=== PATIENT | female | born 1940 | race Caucasian/White ===

== ENCOUNTER → 2016-11-08 | Outpatient (CLI) | payer OTHER ==
[~2016-11-08] MED LIST: ASPEC81; CALCTAB5; EVS60; LANS30CA12 PO; MULT-506 PO; NIAC50TA9 PO; OXYC1TAB3 PO; SIMV80TA2
[2016-11-08 17:49] LABS: ALT/SGPT 32 U/L (12-78); BLOOD UREA NITROGEN 18 mg/dl (7-18); BUN/CREATININE RATIO 18.5 (10-20); CALCIUM 9.1 mg/dl (8.5-10.1); CARBON DIOXIDE 28 mmol/L (21-32); CHLORIDE 104 mmol/L (98-107); CHOLESTEROL 190 mg/dl (0-200); CREATININE 0.95 mg/dl (0.60-1.20); GLUCOSE 91 mg/dl (70-99); POTASSIUM 3.7 mmol/L (3.5-5.1); SODIUM 142 mmol/L (136-145); TRIGLYCERIDES 169 mg/dl (0-150); VERY LOW DENSITY LIPOPROT CALC 34 mg/dl
[2016-11-08 17:52] LABS: ALB/GLOB RATIO 1.1 (0.9-2); ALKALINE PHOSPHATASE 101 U/L (45-117); AST/SGOT 19 U/L (15-37); CHOLESTEROL/HDL RATIO 2.4; HDL CHOLESTEROL 80 mg/dl; LDL CHOLESTEROL CALCULATED 76 mg/dl
== END | disposition home or self-care (01) ==
LOC: C.LABPBG 12:03
PROVIDERS: ATTEND Internal Medicine
DX: E78.5 Hyperlipidemia, unspecified (principal)

== ENCOUNTER → 2017-01-05 | Outpatient (CLI) | payer OTHER ==
--- NOTE | 2017-01-05 16:06 | MAMMOGRAPHY REPORT ---
BILATERAL DIGITAL SCREENING MAMMOGRAM WITH CAD: 01/05/2017 CLINICAL HISTORY: Routine screening. Patient has no complaints. TECHNIQUE: Current study was also evaluated with a Computer Aided Detection (CAD) system. Bilatera l CC and MLO views were obtained. COMPARISON: Comparison is made to exams dated: 12/25/2015 mammogram, 12/23/2014 mammogram, 12/20/2013 mammogram, 12/19/2012 mammogram, and 12/09/2011 mammogram - [facility]. BREAST COMPOSITION: There are scattered areas of fibroglandular density in both breasts. FINDINGS: No suspicious masses, calcifications, or areas of architectural distortion are noted in e ither breast. There has been no significant interval change compared to prior exams. IMPRESSION: ACR BI-RADS CATEGORY 1: NEGATIVE There is no mammographic evidence of malignancy. A 1 year screening mammogram is recommended. The p atient will receive written notification of the results. Approximately 10% of breast cancers are not detected with mammography. A negative mammographic repor t should not delay biopsy if a clinically suggestive mass is present. Rebeca Del Rio M.D. ah/:01/05/2017 15:24:40 Medical Education Coordinator: Nicolle Scott RT(R)(M), [facility] letter sent: Normal 1/2 BI-RADS Code: ACR BI-RADS Category 1: Negative
== END | disposition home or self-care (01) ==
LOC: C.MAMM 13:43
PROVIDERS: ATTEND Obstetrics & Gynecology
DX: Z12.31 Encounter for screening mammogram for malignant neoplasm of breast (principal)

== ENCOUNTER → 2017-05-20 | Outpatient (CLI) | payer OTHER ==
[2017-05-20 12:43] LABS: ALT/SGPT 28 U/L (12-78); AST/SGOT 18 U/L (15-37); BLOOD UREA NITROGEN 17 mg/dl (7-18); BUN/CREATININE RATIO 16.8 (10-20); CALCIUM 8.6 mg/dl (8.5-10.1); CARBON DIOXIDE 31 mmol/L (21-32); CHLORIDE 104 mmol/L (98-107); GLUCOSE 92 mg/dl (70-99); POTASSIUM 3.6 mmol/L (3.5-5.1); SODIUM 139 mmol/L (136-145)
[2017-05-20 12:55] LABS: ALB/GLOB RATIO 1.1 (0.9-2); ALKALINE PHOSPHATASE 99 U/L (45-117); CHOLESTEROL 201 mg/dl (0-200); CHOLESTEROL/HDL RATIO 3.8; HDL CHOLESTEROL 53 mg/dl; LDL CHOLESTEROL CALCULATED 102 mg/dl; TRIGLYCERIDES 230 mg/dl (0-150); VERY LOW DENSITY LIPOPROT CALC 46 mg/dl
== END | disposition home or self-care (01) ==
LOC: C.LABPBG 08:40
PROVIDERS: ATTEND Internal Medicine
DX: M81.0 Age-related osteoporosis without current pathological fracture (principal)

== ENCOUNTER → 2017-11-18 | Outpatient (CLI) | payer OTHER ==
[2017-11-18 13:17] LABS: ALBUMIN 4.1 gm/dl (3.4-5.0); ALT/SGPT 29 U/L (12-78); BLOOD UREA NITROGEN 18 mg/dl (7-18); CALCIUM 9.3 mg/dl (8.5-10.1); CARBON DIOXIDE 32 mmol/L (21-32); CHOLESTEROL 181 mg/dl (0-200); CREATININE 0.91 mg/dl (0.60-1.20); GLUCOSE 92 mg/dl (70-99); POTASSIUM 3.6 mmol/L (3.5-5.1); SODIUM 138 mmol/L (136-145)
[2017-11-18 13:21] LABS: ALKALINE PHOSPHATASE 92 U/L (45-117); AST/SGOT 15 U/L (15-37); LDL CHOLESTEROL CALCULATED 81 mg/dl; TOTAL PROTEIN 7.4 gm/dl (6.4-8.2)
== END | disposition home or self-care (01) ==
LOC: C.LABPBG 10:05
PROVIDERS: ATTEND Internal Medicine
DX: K21.9 Gastro-esophageal reflux disease without esophagitis (principal)

== ENCOUNTER → 2018-01-31 | Day surgery (SDC) | payer OTHER ==
[2018-01-20 12:16] VITALS: Ht 154.9 cm; Wt 65.5 kg
[~2018-01-31] VITALS: Ht 154.9 cm; Wt 65.5 kg
[~2018-01-31] MED LIST changes: +500ML BSS 0.3ML EPI 1:1000PF IRRIG ONE; +ACETAMINOPHEN 325 MG TAB PO PRN; +AMVISC PLUS 0.8ML SYRINGE INT OCU ONE; +ASPCH81X PO; -ASPEC81; +ATOR-26 PO; +ATROPINE SULFATE 0.1 MG/ML 5ML SYR IV PRN; +BSS FLUSH ONE; +CALC500C70 PO; -CALCTAB5; +CHOL20009 PO; +CYAN100020 PO; -EVS60; +EpHEDrine SULFATE INJ 50 MG/ML AMP IV PRN; +EpINEphrine INJ 1MG/ML AMP 1 MG/ML AMP ONE; +HYG/25 PO; +LACTATED RINGER'S 1000ML 500 ML IV SCH; -LANS30CA12 PO; +LIDOCAINE 3.5% OPH GEL PER APPLICATION CHARGE ONE; +LIDOCAINE HCL 1% MPF 2 ML VIAL ONE; +LISI20TA3 PO; +MELO-83 PO; -MULT-506 PO; -NIAC50TA9 PO; +OCUCOAT 1 ML SOLN IO ONE; -OXYC1TAB3 PO; +POVIDONE-IODINE OP SOLN 30 ML BTL ONE; +PROPARACAINE 0.5% OP SOLN PER DROP CHARGE OPL SCH; +RANITAB33 PO; -SIMV80TA2; +TOBRAMYCIN/DEXAMETHASONE OPH OINT PER APPLN CHARGE ONE; +TRAZ50TA35 PO
[2018-01-31] MEDS: PHENYLEPHRINE HCL 2.5% OP SOLN PER DROP CHARGE OPL SCH ×2 (08:44→08:49)
[2018-01-31] MEDS: TROPICAMIDE 1% OP SOLN PER DROP CHARGE OPL SCH ×2 (08:45→08:50)
[2018-01-31] MEDS: CYCLOPENTOLATE HCL 1% OP SOLN PER DROP CHARGE OPL SCH ×2 (08:46→08:51)
[2018-01-31] MEDS: KETOROLAC 0.5% OP SOLN PER DROP CHARGE OPL SCH ×2 (08:47→08:52)
[2018-01-31] MEDS: GATIFLOXACIN OP SOLN PER DROP CHARGE OPL SCH ×2 (08:48→08:58)
--- NOTE | 2018-01-31 09:13 | History & Physical Bridge - SC ---
H&P Re-Evaluation Bridge Note: I have examined the patient, reviewed the History & Physical and in the interval since the performance of the History & Physical I have noted the following changes of clinical significance: No changes noted
--- NOTE | 2018-01-31 10:05 | [facility] Operative Report ---
Operative Report Date of Service January 31, 2018. Operative Report 1. PREOPERATIVE DIAGNOSIS: Cataract of the left eye. 2. POSTOPERATIVE DIAGNOSIS: Same. 3. PROCEDURE: Phacoemulsification with intraocular lens implantation of the left eye. SURGEON: Dr. Hector Stuart. ANESTHESIA: Topical Lidocaine gel, 1% Non- Preserved intracameral Lidocaine, and monitored intravenous sedation. INDICATIONS FOR THE PROCEDURE: The patient is a 77 - year-old female with a history of cataract of the left eye causing significant visual impairment. The details of the proposed procedure were explained to the patient who asked appropriate questions and following discussion of all risks, benefits and alternatives agreed to have the procedure done. 4. OPERATION AND FINDINGS: DESCRIPTION OF PROCEDURE: After informed consent was obtained, the patient was brought to the Operating Room at the [facility]. The patient was placed in a supine position and then the left eye was prepped and draped in the usual sterile fashion for intraocular surgery. A drop of topical Lidocaine gel was placed in the operative eye. A wire lid speculum was then placed in the fornices. A corneal paracentesis was then created temporally. The Non-Preserved Lidocaine was then instilled into the anterior chamber. The anterior chamber was then pressurized with viscoelastic. A 2.0 mm clear corneal incision was then created temporally. A cystotome was inserted into the anterior chamber and used to create a tear in the anterior lens capsule. This capsular tear was then used to create a small flap and the flap was dragged in a counterclockwise direction in order to create a continuous curvilinear capsulorrhexis. Hydrodissection was accomplished with balanced salt solution. Phacoemulsification of the lens nucleus was then performed in a standard [id number] technique. The phaco time was 26 seconds with an average power of 11 %. The remaining cortical material was removed using irrigation aspiration. The capsular bag was then filled with viscoelastic. A [employer]ch [employer] Lomb MI60L +18.5 diopters lens was then loaded into the injector and injected into the capsular bag. The remaining viscoelastic was removed with the irrigation aspiration handpiece. The wound was hydrated and then checked and found to be watertight. The intraocular pressure was checked and found to be adequate. The wire lid speculum was removed and the patient's face was cleaned and dried. TobraDex ointment was placed in the inferior fornix. The patient was discharged to the Recovery Room having tolerated the procedure well. There were no complications. The patient will be seen tomorrow in the office for follow-up. I attest to the content of the Intraoperative Record and any orders documented therein. Any exceptions are noted below.
--- NOTE | 2018-01-31 10:06 | Discharge Instructions-SurgCtr ---
Discharge Instructions Date of Service January 31, 2018. Visit Reason for Visit: Left Cataract Discharge Discharge Diagnosis / Problem: cataract Discharge Goals Goal(s): Improve function Activity Recommendations Activity Limitations: per Instructions/Follow-up section Anesthesia . Post Anesthesia Instructions: If you have had General Anesthesia or IV Sedation: * Do not drive today. * Resume driving when surgeon permits. * Do not make important decisions or sign legal documents today. * Call surgeon for: 1. Temperature elevations greater than 101 degrees F. 2. Uncontrollable pain. 3. Excessive bleeding. 4. Persistent nausea and vomiting. 5. Medication intolerance (nausea, vomiting or rash). * For nausea and vomiting use only clear liquids such as: tea, soda, bouillon until nausea subsides, then gradually increase diet as tolerated. * If you have any concerns or questions, call your surgeon's office. If physician is unavailable and it is an emergency, call 911 or go to the nearest emergency room. . Diet Recommendations Home Diet: resume previous diet Procedures Procedures Performed: Left Cataract Phacoemulsification With Intraocular Lens Implant Pending Studies Studies pending at discharge: no Medical Emergencies . Who to Call and When: Medical Emergencies: If at any time you feel your situation is an emergency, please call 911 immediately. . Non-Emergent Contact Non-Emergency issues call your: It Trainer . . "Provider Documentation" section prepared by Hector Stuart. .
[2018-01-31 10:14] VITALS: BP 117/74; PULSE 67; TEMP 36; O2SAT 98
--- NOTE | 2018-01-31 10:35 | Anesthesia Progress Nt - [facility] ---
Anesthesia Post Op Note Date & Time January 31, 2018 at 10:35 Vital Signs Pain Intensity: 0 Vital Signs Past 12 Hours Date Time Temp Pulse Resp B/P (MAP) Pulse Ox O2 Delivery O2 Flow Rate FiO2 01/31/18 10:14 36 67 16 117/74 (88) 98 Room Air 01/31/18 10:01 74 01/31/18 10:01 75 99 01/31/18 10:01 74 18 142/63 99 Room Air 01/31/18 10:01 75 99 01/31/18 10:00 142/63 01/31/18 10:00 142/63 01/31/18 09:56 73 97 01/31/18 09:56 72 01/31/18 09:56 73 97 01/31/18 09:56 72 01/31/18 09:55 138/78 01/31/18 09:55 138/78 01/31/18 08:35 36.7 68 18 109/68 (82) 96 Notes Mental Status: alert / awake / arousable, participated in evaluation Pt Amnestic to Procedure: Yes Nausea / Vomiting: adequately controlled Pain: adequately controlled Airway Patency, RR, SpO2: stable & adequate BP & HR: stable & adequate Hydration State: stable & adequate Anesthetic Complications: no major complications apparent
== END | disposition home or self-care (01) ==
LOC: X.SURG 08:05
PROVIDERS: ATTEND Ophthalmology
DX: H26.9 Unspecified cataract (principal); I10 Essential (primary) hypertension; Z98.41 Cataract extraction status, right eye; Z79.82 Long term (current) use of aspirin; Z79.899 Other long term (current) drug therapy; Z88.1 Allergy status to other antibiotic agents

== ENCOUNTER → 2018-04-21 | Outpatient (CLI) | payer OTHER ==
[~2018-04-21] MED LIST changes: -500ML BSS 0.3ML EPI 1:1000PF IRRIG ONE; -ACETAMINOPHEN 325 MG TAB PO PRN; -AMVISC PLUS 0.8ML SYRINGE INT OCU ONE; -ATROPINE SULFATE 0.1 MG/ML 5ML SYR IV PRN; -BSS FLUSH ONE; -EpHEDrine SULFATE INJ 50 MG/ML AMP IV PRN; -EpINEphrine INJ 1MG/ML AMP 1 MG/ML AMP ONE; -LACTATED RINGER'S 1000ML 500 ML IV SCH; -LIDOCAINE 3.5% OPH GEL PER APPLICATION CHARGE ONE; -LIDOCAINE HCL 1% MPF 2 ML VIAL ONE; -OCUCOAT 1 ML SOLN IO ONE; -POVIDONE-IODINE OP SOLN 30 ML BTL ONE; -PROPARACAINE 0.5% OP SOLN PER DROP CHARGE OPL SCH; -TOBRAMYCIN/DEXAMETHASONE OPH OINT PER APPLN CHARGE ONE
--- NOTE | 2018-04-24 15:42 | MAMMOGRAPHY REPORT ---
BILATERAL DIGITAL SCREENING MAMMOGRAM TOMOSYNTHESIS WITH CAD: 04/21/2018 CLINICAL HISTORY: Routine screening. TECHNIQUE: The study was acquired using full field digital technology and interpreted from soft copy. Breast tomosynthesis in addition to standard 2D mammography was performed. Current study was also ev aluated with a Computer Aided Detection (CAD) system. COMPARISON: Comparison is made to exams dated: 01/05/2017 mammogram, 12/25/2015 mammogram, 12/23/2014 m ammogram, 12/20/2013 mammogram, 12/09/2011 mammogram, and 12/19/2012 mammogram - [facility]. BREAST COMPOSITION: There are scattered areas of fibroglandular density in both breasts. FINDINGS: No suspicious masses, calcifications, or areas of architectural distortion are noted in either breast . There has been no significant interval change compared to prior exams. IMPRESSION: ACR BI-RADS CATEGORY 1: NEGATIVE There is no mammographic evidence of malignancy. A 1 year screening mammogram is recommended.( 019) The patient will receive written notification of the results. Some breast cancers are not detected with mammography. A negative mammographic report should not yumiko y biopsy if a clinically suggestive mass is present. Rebeca Del Rio M.D. ah/:04/21/2018 15:52:44 Prescriptionist: RT Luisa(Elver)(M), [facility] letter sent: Normal 1/2 BI-RADS Code: ACR BI-RADS Category 1: Negative
== END | disposition home or self-care (01) ==
LOC: C.MAMM 14:50
PROVIDERS: ATTEND Obstetrics & Gynecology
DX: Z12.31 Encounter for screening mammogram for malignant neoplasm of breast (principal)

== ENCOUNTER → 2018-05-18 | Outpatient (CLI) | payer OTHER ==
[2018-05-18 13:01] LABS: BASO % 0.6 %; BASO ABS # 0.03 K/uL (0-0.2); EOS % 5.9 %; EOS ABS # 0.29 K/uL (0-0.5); HEMATOCRIT 42.2 % (37-47); HEMOGLOBIN 14.1 g/dL (12.0-16.0); IG# 0.01 K/uL (0.00-0.02); LYMPH % 22.6 %; LYMPH ABS # 1.12 K/uL (1.2-3.4); MEAN CELL VOLUME 90.4 fL (80-100); MEAN CORPUSCULAR HEMOGLOBIN 30.2 pg (25-34); MEAN CORPUSCULAR HGB CONC 33.4 g/dl (32-36); MEAN PLATELET VOLUME 10.7 fL (7.4-10.4); MONO % 10.5 %; MONO ABS # 0.52 K/uL (0.11-0.59); NEUT % 60.2 %; NEUT ABS # 2.98 K/uL (1.4-6.5); PLATELET COUNT 227 K/uL (130-400); RED CELL DISTRIBUTION WIDTH CV 14.1 % (11.5-14.5); RED CELL DISTRIBUTION WIDTH SD 46.6 fL (36.4-46.3); WHITE BLOOD COUNT 4.95 K/uL (4.8-10.8)
[2018-05-18 16:07] LABS: ALBUMIN 3.9 gm/dl (3.4-5.0); ALKALINE PHOSPHATASE 108 U/L (45-117); ALT/SGPT 30 U/L (12-78); AST/SGOT 22 U/L (15-37); BLOOD UREA NITROGEN 19 mg/dl (7-18); CALCIUM 9.1 mg/dl (8.5-10.1); CARBON DIOXIDE 27 mmol/L (21-32); CHOLESTEROL 215 mg/dl (0-200); GLUCOSE 94 mg/dl (70-99); LDL CHOLESTEROL CALCULATED 111 mg/dl; POTASSIUM 3.7 mmol/L (3.5-5.1); SODIUM 139 mmol/L (136-145); TOTAL PROTEIN 7.5 gm/dl (6.4-8.2)
== END | disposition home or self-care (01) ==
LOC: C.LABPBG 09:13
PROVIDERS: ATTEND Internal Medicine
DX: M81.0 Age-related osteoporosis without current pathological fracture (principal); I10 Essential (primary) hypertension; E78.5 Hyperlipidemia, unspecified; K21.9 Gastro-esophageal reflux disease without esophagitis

== ENCOUNTER 2023-05-04 14:32 | Observation (INO) ==
--- NOTE | 2023-05-04 15:28 | Emergency Department Note ---
History of Present Illness General Chief complaint: Wrist Pain Stated complaint: R WRIST BROKEN,DOC REF,BUMP ON HEAD Time Seen by Provider: 05/04/23 15:11 History of Present Illness Maximum Pain Intensity: 5 This is an 82-year-old female who presents to the emergency department via private vehicle accompanied by daughter with complaints of "right wrist broken, referred by clinic, bump on head". The patient notes that earlier today she was ambulating and tripped and fell on the sidewalk. She notes that she did not lose consciousness. No preceding dizziness, chest pain or shortness of breath. No syncope. She did brace the fall with her right wrist. She notes pain to the right wrist. She initially presented to [facility]. She notes that an x-ray was performed and the wound was cleansed on the right wrist followed by skin glue. She was discharged home pending results of the x-ray. While driving home she received a phone call regarding the fracture and then was directed to [facility]. Upon arriving there they then directed her here for further evaluation and management. The patient rates her current wrist pain is a 5/10. She is right-hand dominant. No headache. Per review of the EMR last Td was 2016. Home Medications Medication Instructions Recorded Confirmed Type cholecalciferol (vitamin D3) 50 2,000 units PO DAILY 06/24/19 05/04/23 History mcg (2,000 unit) capsule cyanocobalamin (vitamin B-12) 1,000 mcg PO DAILY 06/24/19 05/04/23 History 1,000 mcg tablet alendronate 70 mg tablet (Fosamax) 70 mg PO .weekly #12 tabs 01/25/23 05/04/23 Rx chlorthalidone 25 mg tablet 12.5 mg PO DAILY #45 tabs 05/02/23 05/04/23 Rx atorvastatin 80 mg tablet 80 mg PO DAILY 05/04/23 05/04/23 History lisinopril 20 mg tablet 20 mg PO DAILY 05/04/23 05/04/23 History meloxicam 15 mg tablet 15 mg PO DAILY 05/04/23 05/04/23 History Allergies Allergy/AdvReac Type Severity Reaction Status Date / Time naproxen Allergy Unknown FINGER/MOUTH/FACIAL Verified 01/03/23 09:25 SWELLING Bactrim AdvReac Unknown NAUSEA/VOMI Verified 01/31/18 08:33 TTING sulfamethoxazole AdvReac Unknown NAUSEA/VOMI Verified 01/03/23 09:25 TTING trimethoprim AdvReac Unknown NAUSEA/VOMI Verified 01/03/23 09:25 TTING Past Med/Surg History Medical History Gastroesophageal reflux disease without esophagitis HTN (hypertension) Hyperlipidemia Insomnia disorder Osteoporosis Postmenopausal Postmenopausal Spondylosis of cervical region without myelopathy or radiculopathy Surgical History H/O cataract removal with insertion of prosthetic lens S/P section Family History Mother Myocardial infarction Father Colorectal cancer Other Coronary heart disease Dyslipidemia Hypertension Denies family history of Ovarian cancer Prostate cancer Breast cancer Social History Smoking Status: Never smoker Second Hand Exposure: Yes (father smoked); Do You Dip or Chew Tobacco: No; Hx Alcohol Use: No Hx Substance Use: No Preferred Language: Icelandic Communication Ability: Effective Visual Impairment: No Limitations Hearing Ability: Normal Rvda Master Certified Rv Technician Required: No Beliefs That Will Affect Care: None marital status: Current Living Situation: Alone current occupational status: retired Feels Safe at Home: Yes Safety Concerns: Feels Safe At This Time Childhood Exposure to Second-Hand Smoke: Yes Diet: regular Diet Comment: regular caffeine: No during the past year weight has: remained stable Dental Care, Regularly: No Physical Activity Frequency: Daily Physical Activity Frequency Comment: walking Seatbelt Use: always Sunscreen Use: Yes Assistive Devices: Denture - Upper and Other Assistive Devices Comment: reading glasses Review of Systems A total of 10 systems reviewed and were otherwise negative Physical Exam Vital Signs Vital Signs - 24 hr 05/04/23 14:35 05/04/23 17:54 Temperature 36.0 C L Temperature Source Temporal Artery Scan Pulse Rate 112 H Pulse Rate [Finger] 111 H Respiratory Rate 18 18 Respiratory Effort / Characteristics Non-Labored Spontaneous Respiratory Depth Normal Blood Pressure 136/70 Blood Pressure [Left Arm] 131/91 Blood Pressure Mean 92 Blood Pressure Mean [Left Arm] 104 Pulse Oximetry 98 97 Oxygen Delivery Method Room Air Room Air Sepsis Recent Fever Within 48 Hours No Sepsis New/Unexplained Change in Mental Status N/A Sepsis Action Taken by Nursing No Action Required VITAL SIGNS - Vital signs and nursing notes were reviewed. Tachycardic, otherwise stable. GENERAL -82-year-old female appearing her stated age who is in no acute distress. Communicates well with provider and answers questions appropriately. SKIN -there is an approximately 2 cm in diameter slightly raised purplish hue abrasion/contusion overlying the right medial wrist at the level of the ulnar styloid. Minor active bleeding noted from this area. HEAD -right-sided forehead contusion noted. No laceration to the forehead. EYES - PERRL with EOMI bilaterally. No hyphema EARS - No deformities of external structures noted on gross examination bilaterally. No hemotympanum. NOSE - Midline and without cyanosis. No epistaxis or purulent drainage noted. MOUTH/OROPHARYNX - Without perioral cyanosis. NECK -no C-spine tenderness. No nuchal rigidity. LUNGS -clear to auscultation. CARDIAC - RRR EXTREMITIES - No clubbing or peripheral cyanosis. Obvious deformity to the right wrist noted. There is an abrasion/wound near the apex of the medial aspect of the deformity. There is a large amount of ecchymosis present to the dorsum of the right hand extending into the digits. +5/5 strength noted in UE/LE bilaterally. NEUROLOGIC - Cranial nerves II through XII grossly intact. PSYCH - A&O, and cooperates fully with examiner. Pt is very pleasant and interacts well with examiner. Course Administered Medications Sodium Chloride (Nss 1000ml) 1,000 mls @ 80 mls/hr IV .[id number] NAVA Stop: 06/03/23 23:39 Last Admin: 05/05/23 00:20 Dose: 80 mls/hr Documented By: BELINDA Acetaminophen (Ofirmev) 1,000 mg in 100 mls @ 400 mls/hr IV Q8H PRN PRN Reason: Pain Stop: 05/07/23 23:39 Last Infusion: 05/05/23 04:10 Dose: 0 mls/hr Documented By: Admin: 05/05/23 03:55 Dose: 400 mls/hr Documented By: BELINDA Cefazolin Sodium (Ancef 1000mg) 1,000 mg in 7.5 mls @ 2.5 mls/min IV Q8H NAVA Stop: 06/16/23 00:59 Last Admin: 05/05/23 01:04 Dose: 2.5 mls/min Documented By: PLF Discontinued Medications Cefazolin Sodium (Ancef 2000mg) 2,000 mg in 15 mls @ 3.75 mls/min IV NOW STA Stop: 05/04/23 16:51 Last Admin: 05/04/23 17:19 Dose: 3.75 mls/min Documented By: KRISTEN Acetaminophen (Ofirmev) 1,000 mg in 100 mls @ 400 mls/hr IV NOW STA Stop: 05/04/23 18:36 Last Infusion: 05/04/23 19:34 Dose: 0 mls/hr Documented By: Admin: 05/04/23 18:36 Dose: 400 mls/hr Documented By: KRISTEN Medical Decision Making Laboratory Data 05/04/23 16:58 05/04/23 16:58 Lab Results 05/04/23 05/04/23 Range/Units 16:58 16:58 WBC 11.89 H (4.8-10.8) K/ul RBC 4.71 (4.20-5.40) M/uL Hgb 14.3 (12.0-16.0) g/dl Hct 41.3 (37.0-47.0) % MCV 87.7 (80.0-100.0) fL MCH 30.4 (25.0-34.0) pg MCHC 34.6 (32.0-36.0) g/dL RDW Std Deviation 43.1 (36.4-46.3) fL RDW Coeff of Heather 13.4 (11.5-14.5) % Plt Count 263 (130-400) K/uL MPV 10.8 (9.4-12.4) fL Immature Gran % (Auto) 0.3 % Neut % (Auto) 82.0 % Lymph % (Auto) 10.3 % Camas % (Auto) 6.7 % Eos % (Auto) 0.3 % Baso % (Auto) 0.4 % Neut # (Auto) 9.75 H (1.40-6.50) K/uL Lymph # (Auto) 1.22 (1.2-3.4) K/uL Camas # (Auto) 0.80 H (0.11-0.59) K/uL Eos # (Auto) 0.03 (0-0.50) K/uL Baso # (Auto) 0.05 (0-0.2) K/uL Immature Gran # (Auto) 0.04 (0.01-0.20) K/uL Sodium 137 (136-145) mmol/L Potassium 3.6 (3.5-5.1) mmol/L Chloride 102 (98-107) mmol/L Carbon Dioxide 25 (21-32) mmol/L Anion Gap 10 (3-11) BUN 24 H (6-23) mg/dl Creatinine 0.82 (0.6-1.2) mg/dl Est Cr Clr Drug Dosing 48.8 ml/min Est GFR ( Amer) 77.2 ml/min Est GFR (Non-Af Amer) 66.6 ml/min BUN/Creatinine Ratio 29.3 H (10-20) Glucose 102 H (70-99(Fasting)) mg/dl Calcium 10.2 (8.6-10.3) mg/dl Total Bilirubin 1.1 H (0.2-1.0) mg/dl AST 22 (13-39) U/L ALT 20 (7-52) U/L Alkaline Phosphatase 77 (34-104) U/L Total Protein 7.4 (6.0-8.3) gm/dl Albumin 4.5 (3.4-5.0) gm/dl Globulin 2.9 (2.5-4.0) gm/dl Albumin/Globulin Ratio 1.6 (0.9-2) Imaging Data Radiologist's Impression: Head CT 05/04/23 15:30 CT SCAN OF THE BRAIN WITHOUT IV CONTRAST CLINICAL HISTORY: Fall. Scalp contusion. COMPARISON STUDY: No priors. TECHNIQUE: Unenhanced axial CT scan of the brain is performed from the vertex to the skull base. A dose lowering technique was utilized adhering to the principles of ALARA. CT DOSE: 547.75 mGy.cm FINDINGS: Brain parenchyma: There is age-related involutional change noting [id number] subcortical and periventricular microangiopathic disease. There is no hemorrhage, mass effect, or evidence of acute territorial ischemia by CT criteria. A small chronic lacunar infarct is noted in the left basal ganglia. Gomes-white matter differentiation is preserved. No extra-axial fluid collection is seen. Ventricles, sulci, cisterns: Prominent secondary to involutional change. Intracranial vasculature: There is atherosclerotic calcification of the c avernous carotid artery. Calvarium: The skeletal structures are osteopenic. No depressed calvarial fracture is seen. Soft tissues: There is a right frontal scalp hematoma. Sinuses and mastoids: The visualized paranasal sinuses are clear. The mastoid air cells are well pneumatized. Orbits: The bony orbits are grossly intact. IMPRESSION: 1. There is no hemorrhage, mass effect, or evidence of acute territorial ischemia by CT criteria. 2. Right frontal scalp hematoma. ACT 112: Negative or not required by law. Electronically signed by: Gerard Arechiga M.D. 05/04/2023 4:18 PM Hand X-Ray 05/04/23 15:55 XR hand RT min 3V routine CLINICAL HISTORY: R wrist and hand pain s/p fall TECHNIQUE: 3 views of the right hand were obtained. Comparison: None available at the time of this dictation. FINDINGS: Displaced and overriding intra-articular fracture of the distal radius and age indeterminate ulnar styloid fracture again noted. Degenerative changes are seen in the joints. Soft tissue swelling is seen about the wrist. IMPRESSION: Degenerative changes without fractures of the hand. Please see wrist radiograph for findings of the wrist fracture. ACT 112: Negative or not required by law. Electronically signed by: Burton Abebe M.D. 05/04/2023 5:11 PM Wrist X-Ray 05/04/23 15:55 RIGHT WRIST 4 VIEWS CLINICAL HISTORY: Fall with right wrist injury. FINDINGS: 4 views of the right wrist are obtained. No prior studies are available for comparison at the time of dictation. The skeletal structures are osteopenic. There is an impacted and comminuted fracture of the distal radial metaphysis with intra-articular extension. There is volar displacement of the anterior radial fragments and the carpal bones which override the radial shaft. Significant overlying soft tissue edema is noted. There is also an age indeterminant avulsion fracture of the ulnar styloid. The radiocarpal articulation appears maintained. 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 IMPRESSION: 1. Displaced and overriding intra-articular fracture of the distal radius as above. 2. Age-indeterminate avulsion fracture of the ulnar styloid. Electronically signed by: Gerard Arechiga M.D. 05/04/2023 5:05 PM MDM Narrative Patient was seen and evaluated as above in room D05. Review was performed of triage nursing notes and vital signs. Patient presents to us today with right wrist pain. She initially was seen at [facility] and then referred to [facility] and then referred here. After obtaining a thorough history and physical examination the above work up was performed. Options of care were discussed with the patient. She has an obvious deformity to the right wrist. Patient has a wound near the deformity of the right wrist. There is concern for possible open fracture. Attempts were made at obtaining the radiographs obtained prior to being referred here however after time it passed and phone calls were placed decision was made to proceed with radiographs here. X-ray was obtained of the wrist and hand. CT scan of the head was also obtained noting the contusion and mechanism. CT head negative for acute intracranial hemorrhage. Right wrist x-ray reveals a displaced and overriding intra-articular fracture of the distal radius and age-indeterminate avulsion fracture ulnar styloid which I believe is acute. With the patient having the right wrist wound that she notes was dermabonded prior to coming here and correlating the radiograph with the wound, there is concern for possible open fracture. IV access was established. Basic labs were drawn. IV Ancef provided. Patient respectfully declined pain medication. Case then discussed with Dr. Chavira. He will come to evaluate the patient. Patient case signed out to Jenny Mejia PA-C at 5:41pm on 05/04/23 pending orthopedic evaluation. Please refer to further documentation regarding her stay. GCS: 15 In the evaluation and treatment of this patient the following differential diagnoses were entertained: Fracture, dislocation, subluxation, contusion, sprain, strain, acute intracranial hemorrhage, among others. Impression & Plan Fall, Fracture of right wrist, Wound, open, wrist Discharge Plan Visit Data Chief Complaint: Wrist Pain Stated Complaint: R WRIST BROKEN,DOC REF,BUMP ON HEAD ED Provider: Isaac Spencer ED Midlevel Provider: Jenny Mejai Discharge Problem: Fall, Fracture of right wrist, Wound, open, wrist Patient Disposition: Admitted As Inpatient Discharge Instructions Interventions: ED Discharge Assessment Last Done: 05/04/23 23:16
--- NOTE | 2023-05-04 16:20 | CT Scan Report ---
CT SCAN OF THE BRAIN WITHOUT IV CONTRAST CLINICAL HISTORY: Fall. Scalp contusion. COMPARISON STUDY: No priors. TECHNIQUE: Unenhanced axial CT scan of the brain is performed from the vertex to the skull base. A do se lowering technique was utilized adhering to the principles of ALARA. CT DOSE: 547.75 mGy.cm FINDINGS: Brain parenchyma: There is age-related involutional change noting [id number] subcortical and pe riventricular microangiopathic disease. There is no hemorrhage, mass effect, or evidence of acute ter ritorial ischemia by CT criteria. A small chronic lacunar infarct is noted in the left basal ganglia. Gomes-white matter differentiation is preserved. No extra-axial fluid collection is seen. Ventricles, sulci, cisterns: Prominent secondary to involutional change. Intracranial vasculature: There is atherosclerotic calcification of the cavernous carotid artery. Calvarium: The skeletal structures are osteopenic. No depressed calvarial fracture is seen. Soft tissues: There is a right frontal scalp hematoma. Sinuses and mastoids: The visualized paranasal sinuses are clear. The mastoid air cells are well pneu matized. Orbits: The bony orbits are grossly intact. IMPRESSION: 1. There is no hemorrhage, mass effect, or evidence of acute territorial ischemia by CT criteria. 2. Right frontal scalp hematoma. ACT 112: Negative or not required by law. Electronically signed by: Gerard Arechiga M.D. 05/04/2023 4:18 PM
[2023-05-04] MEDS ORDERED: ceFAZolin 2000MG 2,000 MG/15 ML SYR IV STA (16:48)
--- NOTE | 2023-05-04 17:07 | XRay Report ---
RIGHT WRIST 4 VIEWS CLINICAL HISTORY: Fall with right wrist injury. FINDINGS: 4 views of the right wrist are obtained. No prior studies are available for comparison at t he time of dictation. The skeletal structures are osteopenic. There is an impacted and comminuted fra cture of the distal radial metaphysis with intra-articular extension. There is volar displacement of the anterior radial fragments and the carpal bones which override the radial shaft. Significant overl shanika soft tissue edema is noted. There is also an age indeterminant avulsion fracture of the ulnar st yloid. The radiocarpal articulation appears maintained. 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 IMPRESSION: 1. Displaced and overriding intra-articular fracture of the distal radius as above. 2. Age-indeterminate avulsion fracture of the ulnar styloid. Electronically signed by: Gerard Arechiga M.D. 05/04/2023 5:05 PM
--- NOTE | 2023-05-04 17:12 | XRay Report ---
XR hand RT min 3V routine CLINICAL HISTORY: R wrist and hand pain s/p fall TECHNIQUE: 3 views of the right hand were obtained. Comparison: None available at the time of this dictation. FINDINGS: Displaced and overriding intra-articular fracture of the distal radius and age indeterminate ulnar st yloid fracture again noted. Degenerative changes are seen in the joints. Soft tissue swelling is seen about the wrist. IMPRESSION: Degenerative changes without fractures of the hand. Please see wrist radiograph for findings of the w rist fracture. ACT 112: Negative or not required by law. Electronically signed by: Burton Abebe M.D. 05/04/2023 5:11 PM
[2023-05-04 17:39] LABS: Basophils # (auto) 0.05 K/uL (0-0.2); Basophils % (auto) 0.4 %; Eosinophils # (auto) 0.03 K/uL (0-0.50); Eosinophils % (auto) 0.3 %; Hematocrit (blood only) 41.3 % (37.0-47.0); Hemoglobin 14.3 g/dl (12.0-16.0); Immature Granulocytes # (auto) 0.04 K/uL (0.01-0.20); Immature Granulocytes % (auto) 0.3 %; Lymphocytes # (auto) 1.22 K/uL (1.2-3.4); Lymphocytes % (auto) 10.3 %; Mean Corpuscular Hemoglobin 30.4 pg (25.0-34.0); Mean Corpuscular Hgb Conc 34.6 g/dL (32.0-36.0); Mean Corpuscular Volume 87.7 fL (80.0-100.0); Mean Platelet Volume 10.8 fL (9.4-12.4); Monocytes % (auto) 6.7 %; Neutrophils # (auto) 9.75 K/uL (1.40-6.50); Platelet Count 263 K/uL (130-400); RDW Coefficient of Variation 13.4 % (11.5-14.5); RDW Standard Deviation 43.1 fL (36.4-46.3); Red Blood Count 4.71 M/uL (4.20-5.40); White Blood Count 11.89 K/ul (4.8-10.8)
[2023-05-04 17:40] LABS: Albumin Globulin Ratio 1.6 (0.9-2); Albumin Level 4.5 gm/dl (3.4-5.0); BUN Creatinine Ratio 29.3 (10-20); Bilirubin,Total 1.1 mg/dl (0.2-1.0); Calcium 10.2 mg/dl (8.6-10.3); Creatinine Clr Calc Pharmacy 48.8 ml/min; Est GFR (African American) 77.2 ml/min; Est GFR (Non-African American) 66.6 ml/min; Globulin 2.9 gm/dl (2.5-4.0); Potassium 3.6 mmol/L (3.5-5.1); Total Protein 7.4 gm/dl (6.0-8.3)
--- NOTE | 2023-05-04 18:08 | Emergency Department Note ---
ED Visit Note Patient signed out to me at shift change by Mario Savage PA-C pending orthopedic evaluation. Please see his note for full HPI, history, workup and initial treatment plan. Briefly, patient had a mechanical fall and sustained open displaced and overriding intra-articular fracture of the distal radius as well as avulsion fracture of the ulnar styloid. Orthopedics, Dr. Chavira came to evaluate patient at bedside and is recommending admission to his service and surgical intervention tomorrow morning. Patient was agreeable to this plan. She was given dose of IV Ancef for open fracture. She was temporarily placed in a volar splint per recommendations of Dr. Chavira. She did request something for pain and was given IV Tylenol. Patient comfortable and in no acute distress on my exam. RUE neurovascularly intact s/p splinting. She was admitted to Dr. Chavira service in stable condition. .
[2023-05-04] MEDS ORDERED: ACETAMINOPHEN 1,000 MG/100 ML VIAL IV STA (18:22)
--- NOTE | 2023-05-04 18:36 | History & Physical Report ---
Date of Service May 04, 2023 Assessment & Plan (1) Fracture of right wrist: I discussed the diagnosis and treatment options with Gertrude and her daughter at bedside. It is a dorsally displaced fracture. I did not feel close reduction would hold. I recommended admission to the hospital and open reduction internal fixation the following day. Her and her daughter understand the risk, benefits, and alternatives to procedure and elected to proceed. Questions were answered at bedside. Time was spent scribing the procedure and post expectations. We will keep her n.p.o. past midnight tonight. I will keep her on IV Ancef because that ulnar-sided wound. Will get a chest x-ray and EKG. We will likely do the procedure tomorrow afternoon. History of Present Illness Chief Complaint: Right distal radius fracture. Primary Care Provider: Kaitlin Farmer DO Gertrude is a pleasant 82-year-old female who tripped and fell earlier today landing directly on her right outstretched hand. She has been having right wrist pain since. She had a significant deformity of her right wrist. She went to an urgent care center and had a bruise on the dorsal aspect of the wrist treated. She had x-rays there and was found to have a wrist fracture. She came to the emergency room. Radiographs demonstrated a volarly displaced right distal radius fracture. Orthopedics was consulted to evaluate and treat.. Allergies Allergy/AdvReac Type Severity Reaction Status Date / Time naproxen Allergy Unknown FINGER/MOUTH/FACIAL Verified 01/03/23 09:25 SWELLING Bactrim AdvReac Unknown NAUSEA/VOMI Verified 01/31/18 08:33 TTING sulfamethoxazole AdvReac Unknown NAUSEA/VOMI Verified 01/03/23 09:25 TTING trimethoprim AdvReac Unknown NAUSEA/VOMI Verified 01/03/23 09:25 TTING Home Medications Medication Instructions Recorded Confirmed Type cholecalciferol (vitamin D3) 50 2,000 units PO DAILY 06/24/19 01/03/23 History mcg (2,000 unit) capsule cyanocobalamin (vitamin B-12) 1,000 mcg PO DAILY 06/24/19 01/03/23 History 1,000 mcg tablet lidocaine-prilocaine 2.5 %-2.5 % See Rx Instructions .Route 03/11/20 01/03/23 Rx topical cream .COMPLEX #30 grams lisinopril 20 mg tablet See Rx Instructions .Route 07/16/22 01/03/23 Rx .COMPLEX #90 tabs atorvastatin 80 mg tablet See Rx Instructions .Route 09/28/22 01/03/23 Rx .COMPLEX #90 tabs meloxicam 15 mg tablet See Rx Instructions .Route 11/19/22 01/03/23 Rx .COMPLEX #90 tabs alendronate 70 mg tablet (Fosamax) 70 mg PO .weekly #12 tabs 01/25/23 Rx chlorthalidone 25 mg tablet 12.5 mg PO DAILY #45 tabs 05/02/23 Rx Past Med/Surg History Medical History Gastroesophageal reflux disease without esophagitis HTN (hypertension) Hyperlipidemia Insomnia disorder Osteoporosis Postmenopausal Postmenopausal Spondylosis of cervical region without myelopathy or radiculopathy Surgical History H/O cataract removal with insertion of prosthetic lens S/P section Family History Mother Myocardial infarction Father Colorectal cancer Other Coronary heart disease Dyslipidemia Hypertension Denies family history of Ovarian cancer Prostate cancer Breast cancer Social History Smoking Status: Never smoker Second Hand Exposure: No; Do You Dip or Chew Tobacco: No; Hx Alcohol Use: No Hx Substance Use: No Preferred Language: Italian Communication Ability: Effective Visual Impairment: No Limitations Hearing Ability: Normal Cook Box Filler Required: No Beliefs That Will Affect Care: None marital status: Current Living Situation: Alone and Spouse current occupational status: retired Feels Safe at Home: Yes Childhood Exposure to Second-Hand Smoke: Yes Diet: regular Diet Comment: regular caffeine: No during the past year weight has: remained stable Dental Care, Regularly: No Physical Activity Frequency: Daily Physical Activity Frequency Comment: walking Seatbelt Use: always Sunscreen Use: Yes Review of Systems All systems reviewed & are unremarkable except as noted in HPI & below. Physical Exam On physical examination the right wrist, there is a lot of swelling on the dorsal aspect of the hand. There is radial deviation and a small wound on the ulnar aspect. She has active motion of her fingers. Constitutional WD/WN, vitals as above Eyes PERRL, conjunctivae normal, anicteric sclerae ENMT external ear and nose normal, oropharynx normal Neck trachea midline, no thyromegaly Respiratory normal respiratory effort, lungs clear to auscultation Cardiovascular RRR, no murmur, no edema Gastrointestinal (Abdomen) normal bowel sounds, soft, nontender, no hepatosplenomegaly Skin no rashes, warm and dry Psychiatric A+Ox3, euthymic affect Results & Data Results & Data Laboratory Results . Diagnostic Findings X-rays of the right wrist show a volarly displaced oblique fracture of the right distal radius.. PG Care Time/CCT Total # of Minutes Spent Total Time Spent with Patient: Total time spent is greater than 50% in coordination of care (as documented) at patient's floor/unit and/or counseling patient: Coding Level of Care Code 26389 INT INP/OBS CARE 2/55MIN (57 - DECISION FOR SURGERY) Diagnoses Fracture of right wrist S62.101A
[2023-05-04] MEDS ORDERED: ONDANSETRON INJ 2 MG/ML 2 ML VIAL IV PRN (23:40)
[2023-05-04] MEDS ORDERED: ACETAMINOPHEN 1,000 MG/100 ML VIAL IV PRN (23:40)
[2023-05-05] MEDS: SODIUM CHLORIDE 0.9% 1000ML 1,000 ML IV SCH ×2 (00:20→12:31)
[2023-05-05] MEDS: ceFAZolin 1000MG 1,000 MG/7.5 ML SYR IV SCH ×3 (01:04→21:39)
--- NOTE | 2023-05-05 07:34 | XRay Report ---
XR chest 2V PA/lateral CLINICAL HISTORY: Preoperative evaluation TECHNIQUE: 2 views of the chest were obtained. Comparison: Comparison is made to chest radiograph 08/27/2015 FINDINGS: No lines and tubes are seen. Calcified aortic knob is seen. The lungs are clear. No evidence of pleur al effusion or pneumothorax. IMPRESSION: No acute chest disease. ACT 112: Negative or not required by law. Electronically signed by: Burton Abebe M.D. 05/05/2023 7:32 AM
[2023-05-05] MEDS: CHLORTHALIDONE 25 MG TAB PO SCH (08:38)
[2023-05-05] MEDS: lisinopril 20 MG TAB PO SCH (08:39)
[2023-05-05] MEDS ORDERED: Nursing to Pharmacy Communication SCH ×2 (08:45→19:45)
[2023-05-05] MEDS ORDERED: ATORVASTATIN 40 MG TAB PO SCH ×2 (09:00→21:00)
--- NOTE | 2023-05-05 09:05 | Anesthesiology Consultation ---
Date of Service May 05, 2023 Assessment & Plan (1) Encounter for pre-operative examination: Chart Review Chart Review: Acceptable Risk for Surgery and Patient NOT seen in Pre Admission Testing Consults Requested none History Surgery Operation Date: 05/05/23 08:20 Proposed Procedures p Right Wrist Distal Radius Open Reduction Internal Fixation - Ted Chavira DO Height/Weight Height: 5 ft 2 in Weight: 72.1 kg Allergies Allergy/AdvReac Type Severity Reaction Status Date / Time naproxen Allergy Unknown FINGER/MOUTH/FACIAL Verified 01/03/23 09:25 SWELLING Bactrim AdvReac Unknown NAUSEA/VOMI Verified 01/31/18 08:33 TTING sulfamethoxazole AdvReac Unknown NAUSEA/VOMI Verified 01/03/23 09:25 TTING trimethoprim AdvReac Unknown NAUSEA/VOMI Verified 01/03/23 09:25 TTING Medications Home Medications Medication Instructions Recorded Confirmed Last Taken cholecalciferol (vitamin D3) 50 2,000 units PO DAILY 06/24/19 05/04/23 Unknown mcg (2,000 unit) capsule cyanocobalamin (vitamin B-12) 1,000 mcg PO DAILY 06/24/19 05/04/23 Unknown 1,000 mcg tablet alendronate 70 mg tablet (Fosamax) 70 mg PO .weekly #12 tabs 01/25/23 05/04/23 Unknown chlorthalidone 25 mg tablet 12.5 mg PO DAILY #45 tabs 05/02/23 05/04/23 Unknown atorvastatin 80 mg tablet 80 mg PO DAILY 05/04/23 05/04/23 Unknown lisinopril 20 mg tablet 20 mg PO DAILY 05/04/23 05/04/23 Unknown meloxicam 15 mg tablet 15 mg PO DAILY 05/04/23 05/04/23 Unknown Active Medications Generic Name Dose Route Start Last Admin Trade Name Freq PRN Reason Stop Dose Admin Chlorthalidone 12.5 mg 05/05/23 09:00 05/05/23 08:38 Chlorthalidone 25 Mg Tab PO 06/04/23 08:59 12.5 mg DAILY NAVA Administration Sodium Chloride 1,000 mls @ 80 mls/hr 05/04/23 23:40 05/05/23 00:20 Nss 1000ml IV 06/03/23 23:39 80 mls/hr .[id number] NAVA Administration Acetaminophen 1,000 mg in 100 mls @ 400 mls/hr 05/04/23 23:40 05/05/23 04:10 Ofirmev IV 05/07/23 23:39 Infused Q8H PRN Infusion Pain Cefazolin Sodium 1,000 mg in 7.5 mls @ 2.5 mls/min 05/05/23 01:00 05/05/23 0 1:04 Ancef 1000mg IV 06/16/23 00:59 2.5 mls/min Q8H NAVA Administration Lisinopril 20 mg 05/05/23 09:00 05/05/23 08:39 Lisinopril 20 Mg Tab PO 06/04/23 08:59 20 mg DAILY NAVA Administration Past Medical History Medical History Gastroesophageal reflux disease without esophagitis HTN (hypertension) Hyperlipidemia Insomnia disorder Osteoporosis Postmenopausal Postmenopausal Spondylosis of cervical region without myelopathy or radiculopathy Past Family History Family History Mother Myocardial infarction Father Colorectal cancer Other Coronary heart disease Dyslipidemia Hypertension Denies family history of Ovarian cancer Prostate cancer Breast cancer Past Surgical History Surgical History H/O cataract removal with insertion of prosthetic lens S/P section Social History Smoking Status: Never smoker Do You Dip or Chew Tobacco: No Hx Alcohol Use: No Hx Substance Use: No Physical Exam Vital Signs Last Vital Signs Temp 98.4 F 05/05/23 07:32 Pulse 79 05/05/23 07:32 Resp 16 05/05/23 07:32 BP 109/65 05/05/23 07:32 Pulse Ox 94 05/05/23 07:32 O2 Del Method Room Air 05/05/23 07:32 Testing Laboratory Results 05/04/23 16:58 05/04/23 16:58 Electrocardiogram Date: 05/04/23 Findings: + NSR @ (86)
--- NOTE | 2023-05-05 11:10 | Electrocardiogram Report ---
Test Reason : Blood Pressure : / mmHG Vent. Rate : 086 BPM Atrial Rate : 086 BPM P-R Int : 186 ms QRS Dur : 082 ms QT Int : 372 ms P-R-T Axes : 065 -04 046 degrees QTc Int : 445 ms Poor data quality, interpretation may be adversely affected Normal sinus rhythm When compared with ECG of 25-JUL-2005 04:28, No significant change was found Confirmed by Rex Zavaleta ([id number]) on 05/05/2023 11:09:27 AM Referred By: REFERRED SELF Confirmed By:Frederick Zavaleta
--- NOTE | 2023-05-05 14:04 | History & Physical Bridge Note ---
Date of Service May 05, 2023 History & Physical Bridge Note I have examined the patient, reviewed the History & Physical and in the interval since the performance of the History & Physical I have noted the following changes of clinical significance: no changes noted
[2023-05-05] MEDS ORDERED: ROPIVACAINE 0.5% 5 MG/ML 30 ML VIAL ONE (14:16)
[2023-05-05] MEDS ORDERED: BUPIVACAINE 0.25% PF 30 ML VIAL ONE (14:17)
[2023-05-05] MEDS ORDERED: EPINEPHrine INJ 1 MG/ML AMP ONE (14:18)
[2023-05-05] MEDS ORDERED: DEXAMETHASONE SOD INJ 4 MG/ML VIAL ONE ×2 (14:19→15:25)
[2023-05-05] MEDS ORDERED: PROMETHAZINE HCL 12.5 MG in SODIUM CHLORIDE 0.9% 50 ML IV PRN (14:44)
[2023-05-05] MEDS ORDERED: NALOXONE HCL 0.4 MG/1 ML VIAL/CARP IV PRN (14:44)
[2023-05-05] MEDS ORDERED: ePHEDrine sulfate 50 MG/ML AMP IV PRN (14:44)
[2023-05-05] MEDS ORDERED: ONDANSETRON INJ 2 MG/ML 2 ML VIAL IV PRN (14:44)
[2023-05-05] MEDS ORDERED: ATROPINE SULFATE 0.1 MG/ML 10ML SYR IV PRN (14:44)
[2023-05-05] MEDS ORDERED: FLUMAZENIL 0.1 MG/1 ML 10 ML VIAL IV PRN (14:44)
[2023-05-05] MEDS ORDERED: LABETALOL HCL IV 5 MG/ML 20ML IV PRN (14:44)
[2023-05-05] MEDS ORDERED: fentaNYL citrate PF 100 MCG/2 ML VIAL ONE (14:50)
[2023-05-05] MEDS ORDERED: MIDAZOLAM HCL 1 MG/ML 2ML VIAL ONE (14:50)
[2023-05-05] MEDS ORDERED: PROPOFOL IV EMULSION 10 MG/ML 20 ML VIAL IV ONE (15:25)
[2023-05-05] MEDS ORDERED: ONDANSETRON INJ 2 MG/ML 2 ML VIAL ONE (15:25)
[2023-05-05] MEDS ORDERED: GLYCOPYRROLATE 0.2 MG/ML VIAL ONE (16:13)
[2023-05-05] MEDS ORDERED: BUPIVACAINE/EPINEPHRINE 0.5% MPF 1:200,000 30 ML VIAL ONE (16:23)
[2023-05-05] MEDS: fentaNYL citrate PF 100 MCG/2 ML VIAL IV PRN ×2 (17:10→17:15)
[2023-05-05] MEDS: HYDROmorphone INJ 1 MG/ML SYRINGE IV PRN ×2 (17:20→17:25)
--- NOTE | 2023-05-05 17:22 | Operative Report ---
PG Post Operative Report Pre & Post Diagnosis Operation Date: 05/05/23 08:20 Pre-Op Diagnosis: Displaced intra-articular three-part right distal radius fracture Post-Op Diagnosis: Displaced intra-articular three-part right distal radius fracture I identified the patient and participated in the time-out.: Yes Procedure Operation Date: 05/05/23 08:20 Actual Procedures p Right Wrist Distal Radius Open Reduction Internal Fixation(Right) - Ted Chavira DO Surgeon Ted Chavira DO Caterers Helper Ted Stark PA-C Estimated Blood Loss 10 Findings Consistent with Post-Op Diagnosis Specimens None Description of Procedure On May 05, 2023 Gertrude was brought down from her hospital bed to the preoperative holding area. The operative extremity identified and signed. She was taken back the operative room and laid on table supine position. She was put under general anesthesia. The right wrist was prepped and draped in sterile fashion. A timeout was done. The patient and the operative extremity was properly identified. A volar approach was used. Dissection was taken down to the flexor carpi radialis tendon. The tendon was retracted radially and the remaining tendons were retracted ulnarly. Dissection was taken down to the quadratus which was elevated off the distal radius. The fracture was easily identified. The wound was irrigated and the fracture was reduced. A single 3 hole Synthes distal radial locking plate was placed. 2 pins were used to hold the plate in position. Fluoroscopic imaging showed near anatomic alignment of the fracture and the plate. A locking screw was placed both proximally and distally. The pins were then removed. Fluoroscopic imaging showed good alignment. The the remainder of the distal screws were then placed and the 2 remaining proximal screws were placed. Screw lengths were checked on orthogonal fluoroscopic images. Final x-rays were taken and I was happy with the overall alignment. The wounds then irrigated. The tourniquet was deflated and hemostasis was obtained. Surrounding soft tissues were injected with Marcaine with epinephrine. The skin was closed with 2-0 Vicryl and 3-0 nylon suture. She was then placed in a volar splint. She was then extubated and transferred to a hospital bed. She was taken to the postanesthesia care unit in stable condi tion. She tolerated the procedure well. Ted Stark PA-C, was present for the entire procedure. He was critical for patient positioning, prepping, draping, retraction exposure, wound closure and application of sterile dressing. I attest to the content of the Intraoperative Record and any orders documented therein. Any exceptions are noted below.
--- NOTE | 2023-05-05 17:35 | Anesthesiology Progress Note ---
Date of Service May 05, 2023 Anesthesia Post Procedure Vital Signs Vital Signs: Temp Pulse Pulse Resp BP Pulse Ox O2 Del Method 05/05/23 17:25 95 H 18 138/66 96 Nasal Cannula 05/05/23 17:15 96 H 20 141/86 H 97 Oxymask 05/05/23 17:05 99 H 22 135/68 94 Oxymask 05/05/23 16:54 36.6 C 100 H 16 137/83 95 Oxymask 05/05/23 14:16 36.5 C 90 15 118/67 96 Room Air 05/05/23 07:32 36.9 C 79 16 109/65 94 Room Air 05/04/23 23:30 Room Air 05/04/23 23:53 36.6 C 102 H 16 140/71 94 Room Air 05/04/23 23:16 Room Air 05/04/23 21:00 94 H 18 130/68 96 Room Air 05/04/23 19:39 83 16 125/85 93 Room Air 05/04/23 17:54 111 H 18 131/91 97 Room Air O2 Flow Rate 05/05/23 17:25 2 05/05/23 17:15 5 05/05/23 17:05 5 05/05/23 16:54 5 05/05/23 14:16 05/05/23 07:32 05/04/23 23:30 05/04/23 23:53 05/04/23 23:16 05/04/23 21:00 05/04/23 19:39 05/04/23 17:54 Pain Intensity Right Arm: Pain Intensity: 6 Transfer of Care Handoff Completed per policy Notes Mental Status: alert / awake / arousable Patient Amnestic to Procedure: Yes Nausea / Vomiting: adequately controlled Pain: adequately controlled Airway Patency, RR, SpO2: stable & adequate BP & HR: stable & adequate Hydration State: stable & adequate Anesthetic Complications: no major complications apparent
--- NOTE | 2023-05-05 18:55 | Fluoroscopy Report ---
FL wrist RT 3V RTN CLINICAL HISTORY: RT ORIF DISTAL RADIUS COMPARISON STUDY: None. FLUOROSCOPY TIME: 38 seconds. FLUOROSCOPY IMAGES: 2 Ka,r: 0.7 mGy FINDINGS: Status post internal fixation of a distal radius fracture with cortical plate and screws. T he hardware appears intact. There is improved anatomic alignment. IMPRESSION: Fluoroscopic assistance as above. ACT 112: Negative or not required by law. Electronically signed by: Mehrdad Edward M.D. 05/05/2023 6:54 PM
[2023-05-05] MEDS ORDERED: oxyCODONE HCL IR 5 MG TAB (IMMEDIATE RELEASE) PO PRN (19:21)
[2023-05-05] MEDS ORDERED: ACETAMINOPHEN 500 MG TAB PO PRN (19:21)
[2023-05-05] MEDS ORDERED: CHLORASEPTIC 1.4% SOLN 180 ML BTL MT PRN (19:37)
[2023-05-05] MEDS ORDERED: COUGH DROP (SUGAR FREE) LOZ 24 LOZ/1 BOX BUCCAL PRN (19:39)
[2023-05-06] MEDS: ceFAZolin 1000MG 1,000 MG/7.5 ML SYR IV SCH ×2 (01:36→09:09)
--- NOTE | 2023-05-06 06:12 | Orthopedic Progress Note ---
Date of Service May 06, 2023 Assessment & Plan (1) Fracture of right wrist: Overall she is doing as well as expected. She has her right wrist elevated. She can be discharged home later today. She will follow-up with orthopedics in 2 weeks. Latoya Loredo was seen and examined at bedside this morning. Overall she is doing fairly well. She is not having much pain in the right wrist. The nerve block is still in effect. She was able to get some sleep last night. She has no complaints.. Review of Systems All systems reviewed & are unremarkable except as noted in HPI & below. Physical Exam On physical examination the right wrist, she has motion of all of her fingers. She does have sensation in her fingers. She is a little bit diminished sensation in her left thumb.. Results & Data Results & Data Laboratory Results . Diagnostic Findings . PG Care Time/CCT Total # of Minutes Spent Total Time Spent with Patient: Total time spent is greater than 50% in coordination of care (as documented) at patient's floor/unit and/or counseling patient: Coding Level of Care Code 28750 Post Operative Follow-Up Diagnoses Fracture of right wrist S62.101A
--- NOTE | 2023-05-06 06:13 | Discharge Summary ---
Date of Service May 06, 2023 Admission HPI (Per Admitting) Gertrude is a pleasant 82-year-old female who tripped and fell earlier today landing directly on her right outstretched hand. She has been having right wrist pain since. She had a significant deformity of her right wrist. She went to an urgent care center and had a bruise on the dorsal aspect of the wrist treated. She had x-rays there and was found to have a wrist fracture. She came to the emergency room. Radiographs demonstrated a volarly displaced right distal radius fracture. Orthopedics was consulted to evaluate and treat.. Admission Exam (Per Admitting) On physical examination the right wrist, there is a lot of swelling on the dorsal aspect of the hand. There is radial deviation and a small wound on the ulnar aspect. She has active motion of her fingers. Principal Diagnosis Same as "Discharge Diagnosis" noted below under Discharge Instructions. Discharge Exam On physical examination the right wrist, she has motion of all of her fingers. She does have sensation in her fingers. She is a little bit diminished sensation in her left thumb.. Discharge Data Procedures Performed Operation Date: 05/05/23 08:20 Actual Procedures p Right Wrist Distal Radius Open Reduction Internal Fixation(Right) - Ted Chavira, Ordered Studies 05/04/23 15:30 CT head/brain wo con Stat 05/05/23 13:30 US - OR guided needle placemen Stat 05/05/23 14:00 FL wrist RT 3V RTN Routine Hospital Course (1) Fracture of right wrist: On May 04, 2023 Gertrude came to the emergency room with a right distal radius fracture after a fall. There was significant displacement. She was admitted to the orthopedic service for operative fixation the following day. On May 05 she underwent an open reduction internal fixation of her right distal radius without complication. She did have a right upper extremity nerve block. Postoperatively she was placed in a splint and transferred back to the orthopedic floors. On postop day #1 she was doing well. She was not having much pain in the right wrist. She was keeping her wrist elevated. She was able to follow all instructions. She was then discharged home on oral antibiotics and pain medications. She will follow-up with orthopedics in 2 weeks. PG Care Time/CCT Total # of Minutes Spent Total Time Spent with Patient: Total time spent is greater than 50% in coordination of care (as documented) at patient's floor/unit and/or counseling patient: Discharge Plan Discharge Items Patient Disposition: Home - Home Health Services Reason For Visit: RIGHT WRIST FRACTURE Discharge Diagnosis: Right wrist fracture Activity: Per Instructions section Non-emergency contact: Surgeon Call non-emergency contact if: your wound has increased redness and your wound has increased drainage Follow-up/Referrals: Kaitlin Farmer DO [Primary Care Provider] - Diet: Regular Addtl Attending Provider Instructions: ORTHOPEDIC INSTRUCTIONS Activity Recommendations: May use your fingers while in the splint, but no heavy gripping or lifting. Medications: Tramadol 50 mg as needed for pain Take cefadroxil twice a day for 10 days as prescribed. You may take ibuprofen or Tylenol as needed for as well. Dressing Care: Leave the splint intact until follow-up in the office in 2 weeks. Showering: Do not get the splint wet. Things To Watch For: 1. Drainage from the incision site that occurs more than one week after your surgery. 2. Increased redness at the incision site. 3. Fever above 102 degrees Fahrenheit. 4. Unusual chest pain or shortness of breath. 5. Call [facility] at with any of the above problems Follow-Up Visit: Follow-up with Dr. Chavira's PA (Ted Stark) 2-3 weeks after your day of surgery. He will remove your amandeep and answer any questions. If you have any additional questions or concerns, Dr Chavira is usually in the office at the same time and will be available Please call the office to set up an appointment for a time that works for you. Pending Studies at Discharge: No Stand-Alone Forms: [facility], Smoking Cessation Medications and DC Order Prescriptions: New cefadroxil 500 mg capsule 500 mg PO Q12H Qty: 20 0RF tramadol 50 mg tablet 50 mg PO Q6H PRN (Reason: pain) Qty: 30 0RF Continued alendronate [Fosamax] 70 mg tablet 70 mg PO .weekly Qty: 12 3RF chlorthalidone 25 mg tablet 12.5 mg PO DAILY Qty: 45 3RF cholecalciferol (vitamin D3) 2,000 unit capsule 2,000 units PO DAILY cyanocobalamin (vitamin B-12) 1,000 mcg tablet 1,000 mcg PO DAILY atorvastatin 80 mg tablet 80 mg PO DAILY Rx Instructions: TAKE ONE TABLET BY MOUTH EVERY DAY lisinopril 20 mg tablet 20 mg PO DAILY Rx Instructions: TAKE ONE TABLET BY MOUTH EVERY DAY meloxicam 15 mg tablet 15 mg PO DAILY Rx Instructions: TAKE 1 TAB BY MOUTH DAILY Admission Data Admit Date/Time: 05/04/23 18:27 Attending Provider: Ted Chavira Admit Provider: Ted Chavira Primary Care Provider: Kaitlin aFrmer
[2023-05-06] MEDS: CHOLECALCIFEROL 1,000 UNITS 25 MCG TAB PO SCH ×2 (08:52→09:04)
[2023-05-06] MEDS: lisinopril 20 MG TAB PO SCH (08:53)
[2023-05-06] MEDS: CHLORTHALIDONE 25 MG TAB PO SCH (08:53)
[2023-05-06] MEDS: ATORVASTATIN 40 MG TAB PO SCH ×2 (08:54→09:03)
[2023-05-06] MEDS ORDERED: MELOXICAM 7.5 MG TAB PO SCH (09:00)
[2023-05-06] MEDS ORDERED: lisinopril 20 MG TAB PO SCH (09:00)
[2023-05-06] MEDS ORDERED: CYANOCOBALAMIN (B-12) 500 MCG TABLET PO SCH (09:00)
[2023-05-10] MEDS ORDERED: ALENDRONATE SODIUM 70 MG TAB PO SCH (06:30)
== END 2023-05-06 11:25 | disposition home health service (06) ==
LOC: 3W 14:32 → ED 14:32 → 3W 23:16